=== PATIENT | female | born 1945 | race Hispanic/Latino ===

== ENCOUNTER → 2018-05-08 | Outpatient (CLI) | payer MEDICARE | LOC: RAD 10:57 | PROVIDERS: ATTEND Family Medicine | DX: I83.93 Asymptomatic varicose veins of bilateral lower extremities (principal) | CPT/HCPCS: 93970 ==

== ENCOUNTER → 2019-01-08 | Outpatient (CLI) | payer MEDICARE ==
--- NOTE | 2019-01-08 15:14 | Diagnostic Imaging Report ---
EXAMINATION: HEEL LT INDICATION: Heel pain COMPARISON: None FINDINGS: AP and lateral images of the left heel were obtained. Note acute fracture or dislocation. Alignment is anatomic. There is Achilles enthesopathy and calcific tendinosis of the Achilles tendon. Mild amorphous calcification at the plantar fascia. IMPRESSION: No acute osseous injury. Achilles enthesopathy, Achilles calcific tendinopathy, and plantar fascia amorphous calcifications which can be seen with plantar fasciitis. Signed by: Lalita Alicea MD on 01/08/2019 3:10 PM
== END ==
LOC: RAD 14:18
PROVIDERS: ATTEND Family Medicine
DX: M79.672 Pain in left foot (principal); M89.8X7 Other specified disorders of bone, ankle and foot